=== PATIENT | female | born 1950 | race Hispanic/Latino ===

== ENCOUNTER 2017-06-01 19:58 | Inpatient (IN) | payer BC ==
[2017-06-01] MEDS ORDERED: ATROVENT IH ONE (21:33)
[2017-06-01] MEDS ORDERED: MAGNESIUM SULFATE 2GM/50ML 2 GM/50 ML BAG IV ONE (21:33)
[2017-06-01] MEDS ORDERED: PROVENTIL IH ONE (21:33)
[2017-06-01] MEDS ORDERED: ZITHROMAX 500 MG in NACL 0.9% 250ML 250 ML IV ONE (22:00)
[2017-06-01 22:04] LABS: Basophils % (Auto) 0.8 % (0.0-1.8); Hematocrit 40.7 % (30.3-42.9); Hemoglobin 13.1 gm/dl (10.1-14.3); Mean Corpuscular HGB Conc 32 % (30-34); Mean Corpuscular Hemoglobin 27 pg (28-32); Mean Corpuscular Volume 84 fl (79-97); Platelet Count 223 K/mm3 (140-440); Red Blood Count 4.87 M/mm3 (3.65-5.03); Red Cell Distribution Width 15.6 % (13.2-15.2); White Blood Count 9.9 K/mm3 (4.5-11.0)
[2017-06-01 22:19] LABS: Anion Gap 17 mmol/L; BUN/Creatinine Ratio 16; Blood Urea Nitrogen 11 mg/dL (7-17); Calcium 8.7 mg/dL (8.4-10.2); Carbon Dioxide 31 mmol/L (22-30); Chloride 94.9 mmol/L (98-107); Glucose 110 mg/dL (65-100); Sodium 139 mmol/L (137-145)
[2017-06-01] MEDS ORDERED: NACL 0.9% 250ML 250 ML ONE (22:34)
[2017-06-01] MEDS ORDERED: TESSALON PERLES PO ONE (23:33)
--- NOTE | 2017-06-02 00:07 | Emergency Department Report ---
ED Shortness of Breath HPI - General Chief Complaint: Dyspnea/Respdistress Stated Complaint: LAUREN Time Seen by Provider: 06/01/17 21:28 Source: patient, family Mode of arrival: Wheelchair Limitations: No Limitations - History of Present Illness Initial Comments: 66-year-old female [facility] [employer] [facility] [employer] employee presents to the hospital with complaints of shortness of breath and nonproductive cough times one week. Patient had intermittent episodes of wheezing better gradually worsening. Positive subjective fever reported. Patient denies home oxygen use, smoking history, chest pain, or recent travel. Patient did receive her flu shot. Her partner also has URI symptoms but started after hers. Patient is at [facility] on Wednesday for shortness of breath. Patient room and sat 95% in the ED. No pain reported. - Related Data Allergies Allergy/AdvReac Type Severity Reaction Status Date / Time No Known Allergies Allergy Unverified 06/01/17 20:20 ED Review of Systems ROS: Stated complaint: LAUREN Other details as noted in HPI Comment: All other systems reviewed and negative Other: Constitutional: No fevers chills or weight loss Eyes: No eye pain visual changes or discharge ENT: No ear pain or throat pain Neck: Denies pain Respiratory: as per hpi Cardiovascular: Denies chest pain, palpitations, syncope GI: Denies abdominal pain, nausea, vomiting, diarrhea : Denies dysuria Musculoskeletal: Denies back pain, joint swelling Skin: Denies rash, lesions, erythema Neurologic: Denies headache, numbness, weakness Psychiatric: Denies suicidal ideation, hallucinations ED Past Medical Hx - Past Medical History Previous Medical History?: Yes Hx Hypertension: Yes Hx Asthma: Yes Additional medical history: hypothyroidism - Surgical History Past Surgical History?: No - Social History Smoking Status: Former Smoker Substance Use Type: None ED Physical Exam - General Limitations: No Limitations - Other Other exam information: General: No limitations, patient is alert in no acute distress Head exam: Atraumatic, normocephalic Eyes exam: Normal appearance ENT: Moist mucous membrane, normal oropharynx Neck exam: Normal inspection, full range of motion, no meningismus nontender Respiratory exam: Diminished breath sounds bilaterally with expiratory wheezing , frequent coughing with deep inspiration Cardiovascular: Normal rate and rhythm, normal heart sounds Abdomen: Soft, nondistended, and nontender, with normal bowel sounds, no rebound, or guarding Extremity: Full range of motion normal inspection no deformity, no calf tenderness or edema Back: Normal Inspection, full range of motion, no tenderness Neurologic: Alert, oriented x3, cranial nerves intact, no motor or sensory deficit Psychiatric: normal affect, normal mood Skin: Warm, dry, intact ED Course Vital Signs 06/01/17 06/01/17 06/01/17 20:21 21:47 22:18 Temperature 98.9 F Pulse Rate 88 Pulse Rate [ 77 85 Anterior Bilateral Throughout] Respiratory 20 Rate Respiratory 18 20 Rate [Anterior Bilateral Throughout] Blood Pressure 156/56 O2 Sat by Pulse 95 Oximetry - Reevaluation(s) Reevaluation #1: 06/02/17 00:05 While receiving albuterol 10 and and Atrovent 1 mg patient began feeling lightheaded like she was going to pass out. Vital signs were stable without signs of tachycardia, bradycardia, hypotension, or hypoxia. Patient is placed supine and EKG was performed. Patient reports improvement in symptoms. Patient initially declined additional meds but it was agreeable to receiving it spread out over time. Initially patient refused Solumedrol but then was agreeable to receiving the medication along with magnesium. At this time patient reports that her chest feels less tight and she feels like she is improving although has persistent wheezing. Logan castañeda for cough ED Medical Decision Making - Lab Data Result diagrams: 06/01/17 21:41 06/01/17 21:41 Lab Results 06/01/17 06/01/17 Range/Units 21:41 21:41 WBC 9.9 (4.5-11.0) K/mm3 RBC 4.87 (3.65-5.03) M/mm3 Hgb 13.1 (10.1-14.3) gm/dl Hct 40.7 (30.3-42.9) % MCV 84 (79-97) fl MCH 27 L (28-32) pg MCHC 32 (30-34) % RDW 15.6 H (13.2-15.2) % Plt Count 223 (140-440) K/mm3 Lymph % (Auto) 14.7 (13.4-35.0) % [place] % (Auto) 6.9 (0.0-7.3) % Eos % (Auto) 1.0 (0.0-4.3) % Baso % (Auto) 0.8 (0.0-1.8) % Lymph # 1.5 (1.2-5.4) K/mm3 [place] # 0.7 (0.0-0.8) K/mm3 Eos # 0.1 (0.0-0.4) K/mm3 Baso # 0.1 (0.0-0.1) K/mm3 Seg Neutrophils % 76.6 H (40.0-70.0) % Seg Neutrophils # 7.6 (1.8-7.7) K/mm3 Sodium 139 (137-145) mmol/L Potassium 4.0 (3.6-5.0) mmol/L Chloride 94.9 L (98-107) mmol/L Carbon Dioxide 31 H (22-30) mmol/L Anion Gap 17 mmol/L BUN 11 (7-17) mg/dL Creatinine 0.7 (0.7-1.2) mg/dL Estimated GFR > 60 ml/min BUN/Creatinine Ratio 16 % Glucose 110 H (65-100) mg/dL Calcium 8.7 (8.4-10.2) mg/dL - EKG Data -: EKG Interpreted by La EKG shows normal: sinus rhythm, axis (38), QRS complexes (100), ST-T waves ( mild lat st depress) Rate: normal (82) - Radiology Data Radiology results: report reviewed (cxr: naf) - Medical Decision Making Patient be admitted to the hospital for acute bronchitis. Covered with azithromycin for atypical pneumonia. Symptoms gradually improving with ED treatment. Plan to admit for further treatment and evaluation - Differential Diagnosis asthma, COPD, bronchitis, pneumonia, CHF, unstable angina/WI Critical Care Time: No Critical care attestation.: If time is entered above; I have spent that time in minutes in the direct care of this critically ill patient, excluding procedure time. ED Disposition Clinical Impression: Acute bronchitis Disposition: OP ADMIT IP TO THIS HOSP Is pt being admited?: Yes Condition: Stable Time of Disposition: 00:02 (Dr Platt/hosp)
[2017-06-02] MEDS ORDERED: ZOFRAN IV PRN (01:30)
[2017-06-02] MEDS ORDERED: MILK OF MAGNESIA PO PRN (01:30)
[2017-06-02] MEDS ORDERED: DULCOLAX PR PRN (01:30)
[2017-06-02] MEDS ORDERED: TYLENOL PO PRN (01:30)
--- NOTE | 2017-06-02 01:30 | History and Physical Report ---
History of Present Illness Date of examination: 06/02/17 History of present illness: 66 year old woman with history of asthma, hypertension, hypothyroidism comes to the emergency room with complaints of shortness of breath x 9 days. She was seen at [place] emergency room and was treated with nebulizer treatments and discharged. Her symtoms worsened. Has a dry cough, no fever, chills Review Of Systems: Constitutional: no weight loss Ears, eyes, nose, mouth and throat: no nasal congestion, no nasal discharge, no sinus pressure, blurry vision, diplopia Neck: No neck pain or rigidity. Cardiovascular:no chest pain, orthopnea, palpitations Respiratory: + shortness of breath Gastrointestinal: no abdominal pain, hematochezia Genitourinary : no dysuria, frequency , hematuria Musculoskeletal: no muscle ache Integumentary: no rash, no pruritis Neurological: no parathesias, focal weakness Endocrine: no cold or heat intolerance, no polyuria or polydipsia Hematologic/Lymphatic: no easy bruising, no easy bleeding, no gland swelling Allergic/Immunologic: no urticaria, no angioedema. PAST MEDICAL HISTORY:hypertension PAST SURGICAL HISTORY: Left nephrectomy, hemorrhoidectomy, left knee FAMILY HISTORY: Hypertension SOCIAL HISTORY: Drinks 6 beers a day, no tobacco, drugs Medications and Allergies Allergies Allergy/AdvReac Type Severity Reaction Status Date / Time No Known Allergies Allergy Unverified 06/01/17 20:20 Home Medications Medication Instructions Recorded Confirmed Last Taken Type Azithromycin [Zithromax TAB] 500 mg PO QDAY #5 tablet 06/06/17 Unknown Rx Budesonide [Pulmicort Respules] 0.5 mg IH Q12HRT #60 nebu 06/06/17 Unknown Rx Budesonide/Formoterol Fumarate 10.2 gm IH Q12H #2 hfa.aer.ad 06/06/17 Unknown Rx [Symbicort 160-4.5 Mcg Inhaler] HYDROcodone/HOMATROP 5-1.5 5 ml PO Q6H PRN #100 udc 06/06/17 Unknown Rx [HYDROcodone-Homatropin 5-1.5 mg per 5 ML] Ipratropium/Albuterol Sulfate 1 ampul IH Q6HRT #100 ampul.neb 06/06/17 Unknown Rx [DUONEB *Not for PRN Use*] Levothyroxine Sodium [Synthroid] 75 mcg PO QDAY #30 tablet 06/06/17 Unknown Rx Lisinopril/Hydrochlorothiazide 1 tab PO QDAY #30 tablet 06/06/17 Unknown Rx [Zestoretic 20-12.5 mg] Nebulizer and Compressor [[place] 1 each MC QID #1 each 06/06/17 Unknown Rx Choice Nebulizer] ProAir HFA Inhaler 2 puff IH Q4-6H PRN #2 06/06/17 Unknown Rx predniSONE [Deltasone] 20 mg PO QDAY #90 tablet 06/06/17 Unknown Rx Exam - Physical Exam Narrative exam: Gen. appearance: Patient lying in bed, no apparent distress HEENT: Normocephalic, atraumatic, pupils equally round and reactive to light, extraocular movement intact, and no sclericterus,. No JVD or thyromegaly or nodule,neck supple, no carotid bruit ,mucous membranes moist, no exudate or erythema Heart: S1, S2, regular rate and rhythm Lungs: wheezing bilaterally, breathing comfortable Abdomen: Positive bowel sounds, nontender, nondistended, no organomegaly Extremity: no edema, cyanosis, clubbing Skin: No rash, nodules, warm, dry Neuro: Oriented 3, cranial nerves II-12 intact, speech is fluent, motor and sensory intact - Constitutional Vitals: Temp Pulse Resp BP Pulse Ox 98.9 F 85 20 156/56 95 06/01/17 20:21 06/01/17 22:18 06/01/17 22:18 06/01/17 20:21 06/01/17 20:21 Results - Labs CBC & Chem 7: 06/03/17 07:53 06/03/17 07:53 Labs: Abnormal lab results 06/01/17 06/01/17 Range/Units 21:41 21:41 MCH 27 L (28-32) pg RDW 15.6 H (13.2-15.2) % Seg Neutrophils % 76.6 H (40.0-70.0) % Chloride 94.9 L (98-107) mmol/L Carbon Dioxide 31 H (22-30) mmol/L Glucose 110 H (65-100) mg/dL - Imaging and Cardiology EKG: image reviewed Chest x-ray: image reviewed Assessment and Plan ASsessment Asthma ecaerbation hypertension hypothroidism [facility], nebulizer treatments continue appropiate outpatient medications dvt prophalaxis
[2017-06-02] MEDS ORDERED: APRESOLINE IV PRN (01:33)
[2017-06-02] MEDS: DUONEB *Not for PRN Use IH SCH ×4 (02:41→20:40)
[2017-06-02] MEDS ORDERED: NACL 0.9% 250ML 250 ML IV ONE (03:09)
--- NOTE | 2017-06-02 07:28 | XRay Report ---
AP CHEST: HISTORY: Short of breath, cough AP view of the chest demonstrates a normal mediastinal and cardiac contour with clear lungs and normal bony and soft tissue structures. IMPRESSION: Unremarkable AP chest.
[2017-06-02] MEDS: LOVENOX SUB-Q SCH (10:20)
[2017-06-02] MEDS ORDERED: HYDROMET PO PRN (12:16)
[2017-06-02] MEDS: ZITHROMAX PO SCH (13:46)
[2017-06-02] MEDS: HYDROMET PO PRN ×2 (13:46→22:30)
--- NOTE | 2017-06-02 14:27 | Event Note ---
Date: 06/02/17 Patient seen and examined continues with mild shortness of breath. Will add prn nebs, taper steroids, obtain pulmonary input. peak flow. Plan discussed with patient. Weightloss recommended.
[2017-06-03] MEDS: DUONEB *Not for PRN Use IH SCH ×4 (03:01→20:54)
[2017-06-03] MEDS: SYNTHROID PO SCH (06:35)
[2017-06-03 08:17] LABS: Hematocrit 39.8 % (30.3-42.9); Mean Corpuscular HGB Conc 33 % (30-34); Mean Corpuscular Hemoglobin 27 pg (28-32); Mean Corpuscular Volume 84 fl (79-97); Platelet Count 236 K/mm3 (140-440); Red Blood Count 4.75 M/mm3 (3.65-5.03); Red Cell Distribution Width 15.8 % (13.2-15.2)
[2017-06-03 08:30] LABS: White Blood Count 20.2 K/mm3 (4.5-11.0)
[2017-06-03 08:41] LABS: Anion Gap 17 mmol/L; BUN/Creatinine Ratio 28; Blood Urea Nitrogen 17 mg/dL (7-17); Calcium 8.8 mg/dL (8.4-10.2); Carbon Dioxide 30 mmol/L (22-30); Chloride 96.2 mmol/L (98-107); Glucose 193 mg/dL (65-100); Potassium 3.6 mmol/L (3.6-5.0); Sodium 140 mmol/L (137-145)
[2017-06-03 10:11] LABS: Basophils % (Manual) 0 % (0.0-1.8); Blastocytes % (Manual) 0 %; Eosinophils % (Manual) 0 % (0.0-4.3)
[2017-06-03 10:12] LABS: Diff Status Complete; RBC Morphology Normal
[2017-06-03] MEDS: ZESTRIL PO SCH (10:29)
[2017-06-03] MEDS: ZITHROMAX PO SCH (10:29)
[2017-06-03] MEDS: LOVENOX SUB-Q SCH (10:32)
[2017-06-03] MEDS: HCTZ PO SCH (10:32)
[2017-06-03] MEDS: HYDROMET PO PRN (10:33)
[2017-06-03] MEDS ORDERED: D50W (25GM) Syringe IV PRN (11:03)
--- NOTE | 2017-06-03 11:07 | Progress Note ---
Assessment and Plan Assessment and plan: 66 year old woman with history of asthma, hypertension, hypothyroidism comes to the emergency room with complaints of shortness of breath x 9 days. She was seen at [place] emergency room and was treated with nebulizer treatments and discharged. Her symtoms worsened. Has a dry cough, no fever, chills and no recent sick contact or so. Disposition when symptoms had already started. Acute respiratory failure Asthma exacerbation Morbid obesity Probable obesity hypoventilation syndrome Hypothyroidism Metabolic syndrome Hyperglycemia Hypertension Plan * Continue supportive care, pulmonary consult, Peak flow meters * Continue Synthroid * Extensive counselling on weight loss provided patient verbalized understanding 15 minutes spent counseling * Continue steroids, taper, continue nebs. Discussed with plumonary, Inhaled corticosteroids added in addition to LABA * Start on low sliding scale insulin coverage due to Hyperglycemia induced by steroids * DVT/GI prophy * May benefit from CHRIS studies outpatient * Plan discussed with patient. History Interval history: Patient seen and examined, reports some improvement but not at baseline yet. Patient still with shortness of breath on exertion but no associated chest pain , fever, nausea or vomiting. Hospitalist Physical - Constitutional Vitals: Temp Pulse Resp BP Pulse Ox 98.4 F 72 18 140/80 96 06/03/17 07:42 06/03/17 10:29 06/03/17 07:49 06/03/17 10:29 06/03/17 07:59 General appearance: Present: mild distress, obese (morbid) - EENT Eyes: Present: EOM intact ENT: hearing intact, clear oral mucosa, dentition normal - Neck Neck: Present: supple, normal ROM - Respiratory Respiratory effort: normal Respiratory: bilateral: wheezing (expiratory more than inspiratory) - Cardiovascular Rhythm: regular Heart Sounds: Present: S1 & S2. Absent: systolic murmur, diastolic murmur - Extremities Extremities: no ischemia, pulses intact, pulses symmetrical Peripheral Pulses: within normal limits - Abdominal General gastrointestinal: soft, non-tender, non-distended, normal bowel sounds - Integumentary Integumentary: Present: clear, warm, dry - Psychiatric Psychiatric: appropriate mood/affect, intact judgment & insight, memory intact, cooperative - Neurologic Neurologic: CNII-XII intact, moves all extremities, gait normal Results - Labs CBC & Chem 7: 06/03/17 07:53 06/03/17 07:53 Labs: Laboratory Last Values WBC 20.2 K/mm3 (4.5-11.0) H 06/03/17 07:53 RBC 4.75 M/mm3 (3.65-5.03) 06/03/17 07:53 Hgb 13.0 gm/dl (10.1-14.3) 06/03/17 07:53 Hct 39.8 % (30.3-42.9) 06/03/17 07:53 MCV 84 fl (79-97) 06/03/17 07:53 MCH 27 pg (28-32) L 12 07:53 MCHC 33 % (30-34) 06/03/17 07:53 RDW 15.8 % (13.2-15.2) H 06/03/17 07:53 Plt Count 236 K/mm3 (140-440) 06/03/17 07:53 Lymph % (Auto) 14.7 % (13.4-35.0) 06/01/17 21:41 [place] % (Auto) 6.9 % (0.0-7.3) 06/01/17 21:41 Eos % (Auto) 1.0 % (0.0-4.3) 06/01/17 21:41 Baso % (Auto) 0.8 % (0.0-1.8) 06/01/17 21:41 Lymph # 1.5 K/mm3 (1.2-5.4) 06/01/17 21:41 [place] # 0.7 K/mm3 (0.0-0.8) 06/01/17 21:41 Eos # 0.1 K/mm3 (0.0-0.4) 06/01/17 21:41 Baso # 0.1 K/mm3 (0.0-0.1) 06/01/17 21:41 Add Manual Diff Complete 06/03/17 07:53 Total Counted 100 06/03/17 07:53 Seg Neutrophils % Compliance Auditor 06/03/17 07:53 Seg Neuts % (Manual) 84.0 % (40.0-70.0) H 06/03/17 07:53 Band Neutrophils % 2.0 % 06/03/17 07:53 Lymphocytes % (Manual) 8.0 % (13.4-35.0) L 06/03/17 07:53 Reactive Lymphs % (Man) 0 % 06/03/17 07:53 Monocytes % (Manual) 6.0 % (0.0-7.3) 06/03/17 07:53 Eosinophils % (Manual) 0 % (0.0-4.3) 06/03/17 07:53 Basophils % (Manual) 0 % (0.0-1.8) 06/03/17 07:53 Metamyelocytes % 0 % 06/03/17 07:53 Myelocytes % 0 % 06/03/17 07:53 Promyelocytes % 0 % 06/03/17 07:53 Blast Cells % 0 % 06/03/17 07:53 Nucleated RBC % Not Reportable 06/03/17 07:53 Seg Neutrophils # 7.6 K/mm3 (1.8-7.7) 06/01/17 21:41 Seg Neutrophils # Man 17.0 K/mm3 (1.8-7.7) H 06/03/17 07:53 Band Neutrophils # 0.4 K/mm3 06/03/17 07:53 Lymphocytes # (Manual) 1.6 K/mm3 (1.2-5.4) 06/03/17 07:53 Abs React Lymphs (Man) 0.0 K/mm3 06/03/17 07:53 Monocytes # (Manual) 1.2 K/mm3 (0.0-0.8) H 06/03/17 07:53 Eosinophils # (Manual) 0.0 K/mm3 (0.0-0.4) 06/03/17 07:53 Basophils # (Manual) 0.0 K/mm3 (0.0-0.1) 06/03/17 07:53 Metamyelocytes # 0.0 K/mm3 06/03/17 07:53 Myelocytes # 0.0 K/mm3 06/03/17 07:53 Promyelocytes # 0.0 K/mm3 06/03/17 07:53 Blast Cells # 0.0 K/mm3 06/03/17 07:53 WBC Morphology Not Reportable 06/03/17 07:53 Hypersegmented Neuts Not Reportable 06/03/17 07:53 Hyposegmented Neuts Not Reportable 06/03/17 07:53 Hypogranular Neuts Not Reportable 06/03/17 07:53 Smudge Cells Not Reportable 06/03/17 07:53 Toxic Granulation Not Reportable 06/03/17 07:53 Toxic Vacuolation Not Reportable 06/03/17 07:53 Dohle Bodies Not Reportable 06/03/17 07:53 Pelger-Huet Anomaly Not Reportable 06/03/17 07:53 Jatinder Rods Not Reportable 06/03/17 07:53 Platelet Estimate Not Reportable 06/03/17 07:53 Clumped Platelets Not Reportable 06/03/17 07:53 Plt Clumps, EDTA Not Reportable 06/03/17 07:53 Large Platelets Not Reportable 06/03/17 07:53 Giant Platelets Not Reportable 06/03/17 07:53 Platelet Satelliting Not Reportable 06/03/17 07:53 Plt Morphology Comment Not Reportable 06/03/17 07:53 RBC Morphology Normal 06/03/17 07:53 Dimorphic RBCs Not Reportable 06/03/17 07:53 Polychromasia Not Reportable 06/03/17 07:53 Hypochromasia Not Reportable 06/03/17 07:53 Poikilocytosis Not Reportable 06/03/17 07:53 Anisocytosis Not Reportable 06/03/17 07:53 Microcytosis Not Reportable 06/03/17 07:53 Macrocytosis Not Reportable 06/03/17 07:53 Spherocytes Not Reportable 06/03/17 07:53 Pappenheimer Bodies Not Reportable 06/03/17 07:53 Sickle Cells Not Reportable 06/03/17 07:53 Target Cells Not Reportable 06/03/17 07:53 Tear Drop Cells Not Reportable 06/03/17 07:53 Ovalocytes Not Reportable 06/03/17 07:53 Helmet Cells Not Reportable 06/03/17 07:53 [place] Bodies Not Reportable 06/03/17 07:53 [place] Rings Not Reportable 06/03/17 07:53 Krissy Cells Not Reportable 06/03/17 07:53 Bite Cells Not Reportable 06/03/17 07:53 Crenated Cell Not Reportable 06/03/17 07:53 Elliptocytes Not Reportable 06/03/17 07:53 Acanthocytes (Spur) Not Reportable 06/03/17 07:53 Rouleaux Not Reportable 06/03/17 07:53 Hemoglobin C Crystals Not Reportable 06/03/17 07:53 Schistocytes Not Reportable 06/03/17 07:53 Malaria parasites Not Reportable 06/03/17 07:53 [place]ito Bodies Not Reportable 06/03/17 07:53 Hem Pathologist Commnt No 06/03/17 07:53 Sodium 140 mmol/L (137-145) 06/03/17 07:53 Potassium 3.6 mmol/L (3.6-5.0) 06/03/17 07:53 Chloride 96.2 mmol/L (98-107) L 06/03/17 07:53 Carbon Dioxide 30 mmol/L (22-30) 06/03/17 07:53 Anion Gap 17 mmol/L 06/03/17 07:53 BUN 17 mg/dL (7-17) 06/03/17 07:53 Creatinine 0.6 mg/dL (0.7-1.2) L 06/03/17 07:53 Estimated GFR > 60 ml/min 06/03/17 07:53 BUN/Creatinine Ratio 28 % 06/03/17 07:53 Glucose 193 mg/dL (65-100) H 06/03/17 07:53 Calcium 8.8 mg/dL (8.4-10.2) 06/03/17 07:53 Troponin T < 0.010 ng/mL (0.00-0.029) 06/02/17 00:07
--- NOTE | 2017-06-03 11:49 | Consultation ---
History of Present Illness Consult date: 06/03/17 Requesting physician: DIOGENES ARELLANO Reason for consult: asthma History of present illness: 66 y/o, obese female, admitted with several days of worsening shortness of breath and cough. Noticed that she started feeling this way after putting up a new [place] tree. Has known asthma that has been under great control for the last 10 years. Has not taken any therapy in the last 10 years. No sick contacts. Did have low grade temps at home. Remainder is negative. Past History Past Medical History: hypertension, hypothyroidism, other (asthma, obesity) Past Surgical History: No surgical history Social history: (Never a smoker) Family history: no significant family history Medications and Allergies Allergies Allergy/AdvReac Type Severity Reaction Status Date / Time No Known Allergies Allergy Unverified 06/01/17 20:20 Home Medications Medication Instructions Recorded Confirmed Last Taken Type Levothyroxine Sodium [Synthroid] 75 mcg PO QDAY 06/02/17 06/02/17 05/31/17 History Lisinopril/Hydrochlorothiazide 1 tab PO QDAY 06/02/17 06/02/17 05/31/17 History [Zestoretic 20-12.5 mg] ProAir HFA Inhaler 2 puff IH Q4-6H PRN 06/02/17 06/02/17 Unknown History Active Meds: Active Medications Acetaminophen (Tylenol) 650 mg PO Q4H PRN PRN Reason: Pain MILD(1-3)/Fever >100.5/MAYNARD Albuterol (Proventil) 2.5 mg IH Q4HRT PRN PRN Reason: Shortness Of Breath Albuterol/Ipratropium (Duoneb *Not For Prn Use*) 1 ampul IH Q6HRT [facility] Last Admin: 06/03/17 07:21 Dose: 1 ampul Arformoterol Tartrate (Brovana Nebu) 15 mcg IH Q12HRT [facility] Azithromycin (Zithromax) 500 mg PO QDAY [facility] Last Admin: 06/03/17 10:29 Dose: 500 mg Bisacodyl (Dulcolax) 10 mg [place] QDAY PRN PRN Reason: Constipation unrelieved by MOM Budesonide (Pulmicort) 0.5 mg IH Q12HRT [facility] Dextrose (D50w (25gm) Syringe) 50 ml IV PRN PRN PRN Reason: Hypoglycemia Enoxaparin Sodium (Lovenox) 40 mg SUB-Q QDAY [facility] Last Admin: 06/03/17 10:32 Dose: 40 mg Hydralazine HCl (Apresoline) 5 mg IV Q6H PRN PRN Reason: Hypertension Hydrochlorothiazide (Hctz) 12.5 mg PO QDAY [facility] Last Admin: 06/03/17 10:32 Dose: 12.5 mg Hydrocodone Bit/Homatropine Methylb (Hydromet) 5 ml PO Q6H PRN PRN Reason: Cough Last Admin: 06/03/17 10:33 Dose: 5 ml Insulin Aspart (Novolog) 0 units SUB-Q AC [facility] PRN Reason: Protocol Levothyroxine Sodium (Synthroid) 75 mcg PO DAILY@0600 [facility] Last Admin: 06/03/17 06:35 Dose: 75 mcg Lisinopril (Zestril) 20 mg PO QDAY [facility] Last Admin: 06/03/17 10:29 Dose: 20 mg Magnesium Hydroxide (Milk Of Magnesia) 30 ml PO Q4H PRN PRN Reason: Constipation Methylprednisolone Sodium Succinate (Solu-Medrol) 60 mg IV Q6HR GRICELDA Ondansetron HCl (Zofran) 4 mg IV Q8H PRN PRN Reason: N/V unrelieved by Regregan Review of Systems All systems: negative Physical Examination Vital signs: Vital Signs Pulse Resp Pulse Ox 92 H 20 95 06/01/17 20:04 06/01/17 20:04 06/01/17 20:04 General appearance: no acute distress, alert, other (morbidly obese) Eyes: non-icteric ENT: oropharynx moist Neck: supple Effort: normal Ascultation: Bilateral: diminished breath sounds (no wheezes) Percussion: Bilateral: not dull Tactile fremitus: Bilateral: normal Cardiovascular: regular rate and rhythm Gastrointestinal: normoactive bowel sounds, soft, non-tender Extremities: no edema, pink and warm, pulses normal Gait: normal gait normal mental status, non-focal exam mood appropriate Results - Laboratory Findings CBC and BMP: 06/03/17 07:53 06/03/17 07:53 Abnormal lab findings: Abnormal Labs 06/01/17 06/01/17 06/03/17 21:41 21:41 07:53 WBC 20.2 H MCH 27 L 27 L RDW 15.6 H 15.8 H Seg Neutrophils % 76.6 H Seg Neuts % (Manual) 84.0 H Lymphocytes % (Manual) 8.0 L Seg Neutrophils # Man 17.0 H Monocytes # (Manual) 1.2 H Chloride 94.9 L Carbon Dioxide 31 H Creatinine Glucose 110 H 06/03/17 07:53 WBC MCH RDW Seg Neutrophils % Seg Neuts % (Manual) Lymphocytes % (Manual) Seg Neutrophils # Man Monocytes # (Manual) Chloride 96.2 L Carbon Dioxide Creatinine 0.6 L Glucose 193 H - Diagnostic Findings Chest x-ray: image reviewed (clear, no evidence of acute lung disease) Assessment and Plan 66 y/o female with acute flare of asthma secondary to particulate matter 1. Change steroids to 60q6 2. Added BID pulmicort and brovana with first doses now 3. Wean FiO2 as tolerated 4. Continue all other home medications 5. Hopeful discharge in the next 48 hours. Thank you for this consult.
[2017-06-03] MEDS: BROVANA NEBU IH SCH ×2 (13:04→20:51)
[2017-06-03] MEDS: PULMICORT IH SCH ×2 (13:04→20:49)
[2017-06-03] MEDS: NOVOLOG SUB-Q SCH ×2 (15:38→18:02)
[2017-06-03] MEDS: PROVENTIL IH PRN ×2 (20:50→20:52)
[2017-06-03] MEDS ORDERED: ZITHROMAX 500 MG in NACL 0.9% 250ML 250 ML IV ONE (23:00)
[2017-06-04] MEDS: HYDROMET PO PRN (00:28)
[2017-06-04] MEDS: DUONEB *Not for PRN Use IH SCH ×4 (01:57→20:20)
[2017-06-04] MEDS: SYNTHROID PO SCH (07:00)
[2017-06-04] MEDS: PULMICORT IH SCH ×2 (08:06→20:19)
[2017-06-04] MEDS: BROVANA NEBU IH SCH ×2 (08:06→20:19)
[2017-06-04] MEDS: ZITHROMAX PO SCH (10:32)
[2017-06-04] MEDS: ZESTRIL PO SCH (10:32)
[2017-06-04] MEDS: LOVENOX SUB-Q SCH (10:34)
--- NOTE | 2017-06-04 12:08 | Progress Note ---
Assessment and Plan 66 y/o female with acute flare of asthma secondary to particulate matter 1. Continue at 60q6, solumedrol 2. Continue BID pulmicort and brovana 3. Wean FiO2 as tolerated 4. Continue all other home medications 5. Hopeful discharge in the next 24 hours. Thank you for this consult. Subjective Date of service: 06/04/17 Interval history: No acute events. Feels much better today but still not ready to go home. O2 requirment has decreased. Objective Vital Signs - 12hr 06/04/17 06/04/17 06/04/17 02:00 02:11 08:06 Temperature Pulse Rate Pulse Rate [ 86 88 79 Anterior Bilateral Throughout] Respiratory Rate Respiratory 22 20 20 Rate [Anterior Bilateral Throughout] Blood Pressure O2 Sat by Pulse 98 Oximetry 06/04/17 06/04/17 06/04/17 08:09 08:16 10:32 Temperature 97.7 F Pulse Rate 80 501 H Pulse Rate [ 71 Anterior Bilateral Throughout] Respiratory 18 Rate Respiratory 20 Rate [Anterior Bilateral Throughout] Blood Pressure 131/61 O2 Sat by Pulse 96 Oximetry Constitutional: no acute distress, alert, other (morbidly obese) Eyes: non-icteric ENT: oropharynx moist Neck: supple Effort: normal Ascultation: Bilateral: diminished breath sounds (no wheezes) Percussion: Bilateral: not dull Tactile fremitus: Bilateral: normal Cardiovascular: regular rate and rhythm Gastrointestinal: normoactive bowel sounds, soft, non-tender Extremities: no edema, pink and warm, pulses normal Neurologic: normal mental status, non-focal exam Psychiatric: mood appropriate CBC and BMP: 06/03/17 07:53 06/03/17 07:53 Abnormal lab findings: Abnormal Labs 06/01/17 06/01/17 06/03/17 21:41 21:41 07:53 WBC 20.2 H MCH 27 L 27 L RDW 15.6 H 15.8 H Seg Neutrophils % 76.6 H Seg Neuts % (Manual) 84.0 H Lymphocytes % (Manual) 8.0 L Seg Neutrophils # Man 17.0 H Monocytes # (Manual) 1.2 H Chloride 94.9 L Carbon Dioxide 31 H Creatinine Glucose 110 H POC Glucose 06/03/17 06/03/17 06/03/17 07:53 15:53 22:15 WBC MCH RDW Seg Neutrophils % Seg Neuts % (Manual) Lymphocytes % (Manual) Seg Neutrophils # Man Monocytes # (Manual) Chloride 96.2 L Carbon Dioxide Creatinine 0.6 L Glucose 193 H POC Glucose 206 H 199 H 06/04/17 06:14 WBC MCH RDW Seg Neutrophils % Seg Neuts % (Manual) Lymphocytes % (Manual) Seg Neutrophils # Man Monocytes # (Manual) Chloride Carbon Dioxide Creatinine Glucose POC Glucose 162 H
[2017-06-04] MEDS: NOVOLOG SUB-Q SCH ×3 (13:24→21:04)
--- NOTE | 2017-06-04 15:16 | Progress Note ---
Assessment and Plan Assessment and plan: 66 year old woman with history of asthma, hypertension, hypothyroidism comes to the emergency room with complaints of shortness of breath x 9 days. She was seen at [place] emergency room and was treated with nebulizer treatments and discharged. Her symptoms worsened. Has a dry cough, no fever, chills and no recent sick contact or so. Disposition when symptoms had already started. Acute respiratory failure Asthma exacerbation Morbid obesity Probable obesity hypoventilation syndrome Hypothyroidism Metabolic syndrome Hyperglycemia Hypertension Plan * Continue supportive care, pulmonary consult noted, Peak flow meters * Continue Synthroid down to 60 q6. anticipate discharge in am * Extensive counselling on weight loss provided patient verbalized understanding 15 minutes spent counseling * Continue steroids, taper, continue nebs. Discussed with plumonary, Inhaled corticosteroids added in addition to LABA * CONTINUE on low sliding scale insulin coverage due to Hyperglycemia induced by steroids * DVT/GI prophy * May benefit from CHRIS studies outpatient * Plan discussed with patient. History Interval history: Patient seen and examined, reports some improvement but not at baseline yet. Better today than yesterday. no fever, chest pain, nausea, vomiting, diarrhea Hospitalist Physical - Physical exam Narrative exam: VITAL SIGNS: Reviewed. GENERAL: The patient appeared well nourished and normally developed. morbidly obese goes away is his office as a is a this is a question I will site is Vital signs as documented. HEAD: No signs of head trauma. EYES: Pupils are equal. Extraocular motions intact. EARS: Hearing grossly intact. MOUTH: Oropharynx is normal. NECK: No adenopathy, no JVD. CHEST: Chest with wheezing breath sounds bilaterally. No rales, or rhonchi. CARDIAC: Regular rate and rhythm. S1 and S2, without murmurs, gallops, or rubs. VASCULAR: No Edema. Peripheral pulses normal and equal in all extremities. ABDOMEN: Soft, without detectable tenderness. No sign of distention. No rebound or guarding, and no masses palpated. Bowel Sounds normal. MUSCULOSKELETAL: Good range of motion of all major joints. Extremities without clubbing, cyanosis or edema. NEUROLOGIC EXAM: Alert and oriented x 3. No focal sensory or strength deficits. Speech normal. Follows commands. PSYCHIATRIC: Mood normal. SKIN: No rash or lesions. - Constitutional Vitals: Temp Pulse Resp BP Pulse Ox 97.7 F 78 20 131/61 96 06/04/17 08:09 06/04/17 14:16 06/04/17 14:16 06/04/17 08:09 06/04/17 08:09 General appearance: Present: mild distress, obese (morbid) Results - Labs CBC & Chem 7: 06/03/17 07:53 06/03/17 07:53 Labs: Laboratory Last Values WBC 20.2 K/mm3 (4.5-11.0) H 06/03/17 07:53 RBC 4.75 M/mm3 (3.65-5.03) 06/03/17 07:53 Hgb 13.0 gm/dl (10.1-14.3) 06/03/17 07:53 Hct 39.8 % (30.3-42.9) 06/03/17 07:53 MCV 84 fl (79-97) 06/03/17 07:53 MCH 27 pg (28-32) L 06/03/17 07:53 MCHC 33 % (30-34) 06/03/17 07:53 RDW 15.8 % (13.2-15.2) H 06/03/17 07:53 Plt Count 236 K/mm3 (140-440) 06/03/17 07:53 Lymph % (Auto) 14.7 % (13.4-35.0) 06/01/17 21:41 [place] % (Auto) 6.9 % (0.0-7.3) 06/01/17 21:41 Eos % (Auto) 1.0 % (0.0-4.3) 06/01/17 21:41 Baso % (Auto) 0.8 % (0.0-1.8) 06/01/17 21:41 Lymph # 1.5 K/mm3 (1.2-5.4) 06/01/17 21:41 [place] # 0.7 K/mm3 (0.0-0.8) 06/01/17 21:41 Eos # 0.1 K/mm3 (0.0-0.4) 06/01/17 21:41 Baso # 0.1 K/mm3 (0.0-0.1) 06/01/17 21:41 Add Manual Diff Complete 06/03/17 07:53 Total Counted 100 06/03/17 07:53 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 06/03/17 07:53 Seg Neuts % (Manual) 84.0 % (40.0-70.0) H 06/03/17 07:53 Band Neutrophils % 2.0 % 06/03/17 07:53 Lymphocytes % (Manual) 8.0 % (13.4-35.0) L 06/03/17 07:53 Reactive Lymphs % (Man) 0 % 06/03/17 07:53 Monocytes % (Manual) 6.0 % (0.0-7.3) 06/03/17 07:53 Eosinophils % (Manual) 0 % (0.0-4.3) 06/03/17 07:53 Basophils % (Manual) 0 % (0.0-1.8) 06/03/17 07:53 Metamyelocytes % 0 % 06/03/17 07:53 Myelocytes % 0 % 06/03/17 07:53 Promyelocytes % 0 % 06/03/17 07:53 Blast Cells % 0 % 06/03/17 07:53 Nucleated RBC % Not Reportable 06/03/17 07:53 Seg Neutrophils # 7.6 K/mm3 (1.8-7.7) 06/01/17 21:41 Seg Neutrophils # Man 17.0 K/mm3 (1.8-7.7) H 06/03/17 07:53 Band Neutrophils # 0.4 K/mm3 06/03/17 07:53 Lymphocytes # (Manual) 1.6 K/mm3 (1.2-5.4) 06/03/17 07:53 Abs React Lymphs (Man) 0.0 K/mm3 06/03/17 07:53 Monocytes # (Manual) 1.2 K/mm3 (0.0-0.8) H 06/03/17 07:53 Eosinophils # (Manual) 0.0 K/mm3 (0.0-0.4) 06/03/17 07:53 Basophils # (Manual) 0.0 K/mm3 (0.0-0.1) 06/03/17 07:53 Metamyelocytes # 0.0 K/mm3 06/03/17 07:53 Myelocytes # 0.0 K/mm3 06/03/17 07:53 Promyelocytes # 0.0 K/mm3 06/03/17 07:53 Blast Cells # 0.0 K/mm3 06/03/17 07:53 WBC Morphology Not Reportable 06/03/17 07:53 Hypersegmented Neuts Not Reportable 06/03/17 07:53 Hyposegmented Neuts Not Reportable 06/03/17 07:53 Hypogranular Neuts Not Reportable 06/03/17 07:53 Smudge Cells Not Reportable 06/03/17 07:53 Toxic Granulation Not Reportable 06/03/17 07:53 Toxic Vacuolation Not Reportable 06/03/17 07:53 Dohle Bodies Not Reportable 06/03/17 07:53 Pelger-Huet Anomaly Not Reportable 06/03/17 07:53 Jatinder Rods Not Reportable 06/03/17 07:53 Platelet Estimate Not Reportable 06/03/17 07:53 Clumped Platelets Not Reportable 06/03/17 07:53 Plt Clumps, EDTA Not Reportable 06/03/17 07:53 Large Platelets Not Reportable 06/03/17 07:53 Giant Platelets Not Reportable 06/03/17 07:53 Platelet Satelliting Not Reportable 06/03/17 07:53 Plt Morphology Comment Not Reportable 06/03/17 07:53 RBC Morphology Normal 06/03/17 07:53 Dimorphic RBCs Not Reportable 06/03/17 07:53 Polychromasia Not Reportable 06/03/17 07:53 Hypochromasia Not Reportable 06/03/17 07:53 Poikilocytosis Not Reportable 06/03/17 07:53 Anisocytosis Not Reportable 06/03/17 07:53 Microcytosis Not Reportable 06/03/17 07:53 Macrocytosis Not Reportable 06/03/17 07:53 Spherocytes Not Reportable 06/03/17 07:53 Pappenheimer Bodies Not Reportable 06/03/17 07:53 Sickle Cells Not Reportable 06/03/17 07:53 Target Cells Not Reportable 06/03/17 07:53 Tear Drop Cells Not Reportable 06/03/17 07:53 Ovalocytes Not Reportable 06/03/17 07:53 Helmet Cells Not Reportable 06/03/17 07:53 [place] Bodies Not Reportable 06/03/17 07:53 [place] Rings Not Reportable 06/03/17 07:53 [place] Cells Not Reportable 06/03/17 07:53 Bite Cells Not Reportable 06/03/17 07:53 Crenated Cell Not Reportable 06/03/17 07:53 Elliptocytes Not Reportable 06/03/17 07:53 Acanthocytes (Spur) Not Reportable 06/03/17 07:53 Rouleaux Not Reportable 06/03/17 07:53 Hemoglobin C Crystals Not Reportable 06/03/17 07:53 Schistocytes Not Reportable 06/03/17 07:53 Malaria parasites Not Reportable 06/03/17 07:53 [place] Bodies Not Reportable 06/03/17 07:53 Hem Pathologist Commnt No 06/03/17 07:53 Sodium 140 mmol/L (137-145) 06/03/17 07:53 Potassium 3.6 mmol/L (3.6-5.0) 06/03/17 07:53 Chloride 96.2 mmol/L (98-107) L 06/03/17 07:53 Carbon Dioxide 30 mmol/L (22-30) 06/03/17 07:53 Anion Gap 17 mmol/L 06/03/17 07:53 BUN 17 mg/dL (7-17) 06/03/17 07:53 Creatinine 0.6 mg/dL (0.7-1.2) L 06/03/17 07:53 Estimated GFR > 60 ml/min 06/03/17 07:53 BUN/Creatinine Ratio 28 % 06/03/17 07:53 Glucose 193 mg/dL (65-100) H 06/03/17 07:53 POC Glucose 252 (70-105) H 06/04/17 11:49 Calcium 8.8 mg/dL (8.4-10.2) 06/03/17 07:53 Troponin T < 0.010 ng/mL (0.00-0.029) 06/02/17 00:07
[2017-06-04] MEDS: HCTZ PO SCH (17:24)
[2017-06-05] MEDS: HYDROMET PO PRN (02:16)
[2017-06-05] MEDS: DUONEB *Not for PRN Use IH SCH ×4 (03:15→19:59)
[2017-06-05] MEDS: SYNTHROID PO SCH (07:22)
[2017-06-05] MEDS: BROVANA NEBU IH SCH ×2 (08:01→19:58)
[2017-06-05] MEDS: PULMICORT IH SCH ×2 (08:01→19:59)
[2017-06-05] MEDS: ZITHROMAX PO SCH (09:40)
[2017-06-05] MEDS: ZESTRIL PO SCH (09:41)
[2017-06-05] MEDS: NOVOLOG SUB-Q SCH ×3 (09:41→17:46)
[2017-06-05] MEDS: HCTZ PO SCH (09:41)
[2017-06-05] MEDS: LOVENOX SUB-Q SCH (09:41)
--- NOTE | 2017-06-05 10:22 | Progress Note ---
Assessment and Plan Assessment and plan: Assessment and Plan Assessment and plan: 66 year old woman with history of asthma, hypertension, hypothyroidism comes to the emergency room with complaints of shortness of breath x 9 days. She was seen at [place] emergency room and was treated with nebulizer treatments and discharged. Her symptoms worsened. Has a dry cough, no fever, chills and no recent sick contact or so. Disposition when symptoms had already started. Acute respiratory failure Asthma exacerbation Morbid obesity Probable obesity hypoventilation syndrome Hypothyroidism Metabolic syndrome Hyperglycemia Hypertension Plan * Continue supportive care, pulmonary consult noted, Peak flow meters * Continue Synthroid down to 60 q6. anticipate discharge in am * Extensive counselling on weight loss provided patient verbalized understanding 15 minutes spent counseling * Continue steroids, taper, continue nebs. Discussed with plumonary, Inhaled corticosteroids added in addition to LABA * CONTINUE on low sliding scale insulin coverage due to Hyperglycemia induced by steroids * DVT/GI prophy * May benefit from CHRIS studies outpatient * Plan discussed with patient. * Will discharge tomorrow on Oral prednisone if Pulmonolgy agrees History Interval history: Doing better Hospitalist Physical - Constitutional Vitals: Temp Pulse Resp BP Pulse Ox 97.8 F 65 20 164/63 92 06/05/17 08:38 06/05/17 08:38 06/05/17 08:38 06/05/17 09:41 06/05/17 08:38 General appearance: Present: no acute distress, mild distress, obese (morbid) - EENT Eyes: Present: PERRL, EOM intact - Neck Neck: Present: supple, normal ROM - Respiratory Respiratory: bilateral: CTA - Cardiovascular Heart rate: 76 Rhythm: regular - Extremities Extremities: no ischemia, pulses intact Peripheral Pulses: within normal limits - Abdominal General gastrointestinal: soft, non-tender, normal bowel sounds - Integumentary Integumentary: Present: clear, warm, dry - Psychiatric Psychiatric: appropriate mood/affect - Neurologic Neurologic: CNII-XII intact, gait normal - Allied Health Allied health notes reviewed: nursing, case management Results - Labs CBC & Chem 7: 06/03/17 07:53 06/03/17 07:53 Labs: Laboratory Last Values WBC 20.2 K/mm3 (4.5-11.0) H 06/03/17 07:53 RBC 4.75 M/mm3 (3.65-5.03) 06/03/17 07:53 Hgb 13.0 gm/dl (10.1-14.3) 06/03/17 07:53 Hct 39.8 % (30.3-42.9) 06/03/17 07:53 MCV 84 fl (79-97) 06/03/17 07:53 MCH 27 pg (28-32) L 06/03/17 07:53 MCHC 33 % (30-34) 06/03/17 07:53 RDW 15.8 % (13.2-15.2) H 06/03/17 07:53 Plt Count 236 K/mm3 (140-440) 06/03/17 07:53 Lymph % (Auto) 14.7 % (13.4-35.0) 06/01/17 21:41 [place] % (Auto) 6.9 % (0.0-7.3) 06/01/17 21:41 Eos % (Auto) 1.0 % (0.0-4.3) 06/01/17 21:41 Baso % (Auto) 0.8 % (0.0-1.8) 06/01/17 21:41 Lymph # 1.5 K/mm3 (1.2-5.4) 06/01/17 21:41 [place] # 0.7 K/mm3 (0.0-0.8) 06/01/17 21:41 Eos # 0.1 K/mm3 (0.0-0.4) 06/01/17 21:41 Baso # 0.1 K/mm3 (0.0-0.1) 06/01/17 21:41 Add Manual Diff Complete 06/03/17 07:53 Total Counted 100 06/03/17 07:53 Seg Neutrophils % Work From Home 06/03/17 07:53 Seg Neuts % (Manual) 84.0 % (40.0-70.0) H 06/03/17 07:53 Band Neutrophils % 2.0 % 06/03/17 07:53 Lymphocytes % (Manual) 8.0 % (13.4-35.0) L 06/03/17 07:53 Reactive Lymphs % (Man) 0 % 06/03/17 07:53 Monocytes % (Manual) 6.0 % (0.0-7.3) 06/03/17 07:53 Eosinophils % (Manual) 0 % (0.0-4.3) 06/03/17 07:53 Basophils % (Manual) 0 % (0.0-1.8) 06/03/17 07:53 Metamyelocytes % 0 % 06/03/17 07:53 Myelocytes % 0 % 06/03/17 07:53 Promyelocytes % 0 % 06/03/17 07:53 Blast Cells % 0 % 06/03/17 07:53 Nucleated RBC % Not Reportable 06/03/17 07:53 Seg Neutrophils # 7.6 K/mm3 (1.8-7.7) 06/01/17 21:41 Seg Neutrophils # Man 17.0 K/mm3 (1.8-7.7) H 06/03/17 07:53 Band Neutrophils # 0.4 K/mm3 06/03/17 07:53 Lymphocytes # (Manual) 1.6 K/mm3 (1.2-5.4) 06/03/17 07:53 Abs React Lymphs (Man) 0.0 K/mm3 06/03/17 07:53 Monocytes # (Manual) 1.2 K/mm3 (0.0-0.8) H 06/03/17 07:53 Eosinophils # (Manual) 0.0 K/mm3 (0.0-0.4) 06/03/17 07:53 Basophils # (Manual) 0.0 K/mm3 (0.0-0.1) 06/03/17 07:53 Metamyelocytes # 0.0 K/mm3 06/03/17 07:53 Myelocytes # 0.0 K/mm3 06/03/17 07:53 Promyelocytes # 0.0 K/mm3 06/03/17 07:53 Blast Cells # 0.0 K/mm3 06/03/17 07:53 WBC Morphology Not Reportable 06/03/17 07:53 Hypersegmented Neuts Not Reportable 06/03/17 07:53 Hyposegmented Neuts Not Reportable 06/03/17 07:53 Hypogranular Neuts Not Reportable 06/03/17 07:53 Smudge Cells Not Reportable 06/03/17 07:53 Toxic Granulation Not Reportable 06/03/17 07:53 Toxic Vacuolation Not Reportable 06/03/17 07:53 Dohle Bodies Not Reportable 06/03/17 07:53 Pelger-Huet Anomaly Not Reportable 06/03/17 07:53 Jatinder Rods Not Reportable 06/03/17 07:53 Platelet Estimate Not Reportable 06/03/17 07:53 Clumped Platelets Not Reportable 06/03/17 07:53 Plt Clumps, EDTA Not Reportable 06/03/17 07:53 Large Platelets Not Reportable 06/03/17 07:53 Giant Platelets Not Reportable 06/03/17 07:53 Platelet Satelliting Not Reportable 06/03/17 07:53 Plt Morphology Comment Not Reportable 06/03/17 07:53 RBC Morphology Normal 06/03/17 07:53 Dimorphic RBCs Not Reportable 06/03/17 07:53 Polychromasia Not Reportable 06/03/17 07:53 Hypochromasia Not Reportable 06/03/17 07:53 Poikilocytosis Not Reportable 06/03/17 07:53 Anisocytosis Not Reportable 06/03/17 07:53 Microcytosis Not Reportable 06/03/17 07:53 Macrocytosis Not Reportable 06/03/17 07:53 Spherocytes Not Reportable 06/03/17 07:53 Pappenheimer Bodies Not Reportable 06/03/17 07:53 Sickle Cells Not Reportable 06/03/17 07:53 Target Cells Not Reportable 06/03/17 07:53 Tear Drop Cells Not Reportable 06/03/17 07:53 Ovalocytes Not Reportable 06/03/17 07:53 Helmet Cells Not Reportable 06/03/17 07:53 [place] Bodies Not Reportable 06/03/17 07:53 [place] Rings Not Reportable 06/03/17 07:53 [place] Cells Not Reportable 06/03/17 07:53 Bite Cells Not Reportable 06/03/17 07:53 Crenated Cell Not Reportable 06/03/17 07:53 Elliptocytes Not Reportable 06/03/17 07:53 Acanthocytes (Spur) Not Reportable 06/03/17 07:53 Rouleaux Not Reportable 06/03/17 07:53 Hemoglobin C Crystals Not Reportable 06/03/17 07:53 Schistocytes Not Reportable 06/03/17 07:53 Malaria parasites Not Reportable 06/03/17 07:53 [place] Bodies Not Reportable 06/03/17 07:53 Hem Pathologist Commnt No 06/03/17 07:53 Sodium 140 mmol/L (137-145) 06/03/17 07:53 Potassium 3.6 mmol/L (3.6-5.0) 06/03/17 07:53 Chloride 96.2 mmol/L (98-107) L 06/03/17 07:53 Carbon Dioxide 30 mmol/L (22-30) 06/03/17 07:53 Anion Gap 17 mmol/L 06/03/17 07:53 BUN 17 mg/dL (7-17) 06/03/17 07:53 Creatinine 0.6 mg/dL (0.7-1.2) L 06/03/17 07:53 Estimated GFR > 60 ml/min 06/03/17 07:53 BUN/Creatinine Ratio 28 % 06/03/17 07:53 Glucose 193 mg/dL (65-100) H 06/03/17 07:53 POC Glucose 167 (70-105) H 06/05/17 06:17 Calcium 8.8 mg/dL (8.4-10.2) 06/03/17 07:53 Troponin T < 0.010 ng/mL (0.00-0.029) 06/02/17 00:07
--- NOTE | 2017-06-05 16:15 | Progress Note ---
Assessment and Plan 66 y/o female with acute flare of asthma secondary to particulate matter 1. Change to Prednisone 60 daily and taper as follows 60x4, 40x4, 20x4 and then 10x4 then stop. 2. Discharge on Symbicort 160 2 puffs BID, one inhaler, no refills 3. Wean FiO2 as tolerated, no on oxygen at home, sats of 88% and greater are acceptable. Should be walked prior to discharge 4. Continue all other home medications 5. Hopeful discharge in the next 2-18 hours. 6. Do not need to see patient unless clinical status has changed. She can follow up with Caroline in 10-14 days. Thank you for this consult. Subjective Date of service: 06/05/17 Interval history: Asleep, no family at bedside. Still on O2 with good sats. Appears comfortable. Objective Vital Signs - 12hr 06/05/17 06/05/17 06/05/17 04:50 08:01 08:11 Temperature 97.5 F L Pulse Rate 67 Pulse Rate [ 67 70 Anterior Bilateral Throughout] Respiratory 18 Rate Respiratory 18 20 Rate [Anterior Bilateral Throughout] Blood Pressure 115/51 O2 Sat by Pulse 94 97 Oximetry 06/05/17 06/05/17 08:38 09:41 Temperature 97.8 F Pulse Rate 65 Pulse Rate [ Anterior Bilateral Throughout] Respiratory 20 Rate Respiratory Rate [Anterior Bilateral Throughout] Blood Pressure 164/63 164/63 O2 Sat by Pulse 92 Oximetry Constitutional: no acute distress, alert, other (morbidly obese) Eyes: non-icteric ENT: oropharynx moist Neck: supple Effort: normal Ascultation: Bilateral: diminished breath sounds (no wheezes) Percussion: Bilateral: not dull Tactile fremitus: Bilateral: normal Cardiovascular: regular rate and rhythm Gastrointestinal: normoactive bowel sounds, soft, non-tender Extremities: no edema, pink and warm, pulses normal Neurologic: normal mental status, non-focal exam Psychiatric: mood appropriate CBC and BMP: 06/03/17 07:53 06/03/17 07:53 Abnormal lab findings: Abnormal Labs 06/01/17 06/01/17 06/03/17 21:41 21:41 07:53 WBC 20.2 H MCH 27 L 27 L RDW 15.6 H 15.8 H Seg Neutrophils % 76.6 H Seg Neuts % (Manual) 84.0 H Lymphocytes % (Manual) 8.0 L Seg Neutrophils # Man 17.0 H Monocytes # (Manual) 1.2 H Chloride 94.9 L Carbon Dioxide 31 H Creatinine Glucose 110 H POC Glucose 06/03/17 06/03/17 06/03/17 07:53 15:53 22:15 WBC MCH RDW Seg Neutrophils % Seg Neuts % (Manual) Lymphocytes % (Manual) Seg Neutrophils # Man Monocytes # (Manual) Chloride 96.2 L Carbon Dioxide Creatinine 0.6 L Glucose 193 H POC Glucose 206 H 199 H 06/04/17 06/04/17 06/04/17 06:14 11:49 16:48 WBC MCH RDW Seg Neutrophils % Seg Neuts % (Manual) Lymphocytes % (Manual) Seg Neutrophils # Man Monocytes # (Manual) Chloride Carbon Dioxide Creatinine Glucose POC Glucose 162 H 252 H 170 H 06/04/17 06/05/17 06/05/17 22:08 06:17 11:47 WBC MCH RDW Seg Neutrophils % Seg Neuts % (Manual) Lymphocytes % (Manual) Seg Neutrophils # Man Monocytes # (Manual) Chloride Carbon Dioxide Creatinine Glucose POC Glucose 214 H 167 H 216 H
[2017-06-06] MEDS: DUONEB *Not for PRN Use IH SCH ×3 (03:07→14:59)
[2017-06-06] MEDS: HYDROMET PO PRN (04:13)
[2017-06-06] MEDS: SYNTHROID PO SCH (05:55)
[2017-06-06 09:21] VITALS: BP 160/83
[2017-06-06] MEDS: HCTZ PO SCH (09:33)
[2017-06-06] MEDS: ZESTRIL PO SCH (09:33)
[2017-06-06] MEDS: ZITHROMAX PO SCH (09:34)
[2017-06-06] MEDS: NOVOLOG SUB-Q SCH ×2 (09:34→13:04)
[2017-06-06] MEDS: LOVENOX SUB-Q SCH ×2 (09:35→10:03)
[2017-06-06] MEDS: BROVANA NEBU IH SCH (09:50)
[2017-06-06] MEDS: PULMICORT IH SCH (09:50)
[2017-06-06] MEDS ORDERED: DELTASONE PO SCH (11:00)
--- NOTE | 2017-06-06 12:48 | Progress Note ---
Assessment and Plan 66 y/o female with acute flare of asthma secondary to particulate matter 1. Change to Prednisone 60 daily and taper as follows 60x4, 40x4, 20x4 and then 10x4 then stop. 2. Discharge on Symbicort 160 2 puffs BID, one inhaler, no refills 3. Wean FiO2 as tolerated, no on oxygen at home, sats of 88% and greater are acceptable. Should be walked prior to discharge 4. Continue all other home medications 5. could have been discharged yesterday, not held up secondary to pulm status Thank you for this consult. Subjective Date of service: 06/06/17 Interval history: Weaned to room air. Up eating lunch. Stable. Ready to go home Objective Vital Signs - 12hr 06/06/17 06/06/17 06/06/17 02:10 02:20 09:03 Temperature 98.5 F Pulse Rate 70 Pulse Rate [ 73 79 Anterior Bilateral Throughout] Respiratory 22 Rate Respiratory 20 20 Rate [Anterior Bilateral Throughout] Blood Pressure 160/83 O2 Sat by Pulse 97 Oximetry 06/06/17 06/06/17 06/06/17 09:33 09:49 09:50 Temperature Pulse Rate Pulse Rate [ 63 Anterior Bilateral Throughout] Respiratory Rate Respiratory 18 Rate [Anterior Bilateral Throughout] Blood Pressure 160/83 O2 Sat by Pulse 94 Oximetry 06/06/17 10:06 Temperature Pulse Rate Pulse Rate [ 64 Anterior Bilateral Throughout] Respiratory Rate Respiratory 18 Rate [Anterior Bilateral Throughout] Blood Pressure O2 Sat by Pulse Oximetry Constitutional: no acute distress, alert, other (morbidly obese) Eyes: non-icteric ENT: oropharynx moist Neck: supple Effort: normal Ascultation: Bilateral: diminished breath sounds (no wheezes) Percussion: Bilateral: not dull Tactile fremitus: Bilateral: normal Cardiovascular: regular rate and rhythm Gastrointestinal: normoactive bowel sounds, soft, non-tender Extremities: no edema, pink and warm, pulses normal Neurologic: normal mental status, non-focal exam Psychiatric: mood appropriate CBC and BMP: 06/03/17 07:53 06/03/17 07:53 Abnormal lab findings: Abnormal Labs 06/01/17 06/01/17 06/03/17 21:41 21:41 07:53 WBC 20.2 H MCH 27 L 27 L RDW 15.6 H 15.8 H Seg Neutrophils % 76.6 H Seg Neuts % (Manual) 84.0 H Lymphocytes % (Manual) 8.0 L Seg Neutrophils # Man 17.0 H Monocytes # (Manual) 1.2 H Chloride 94.9 L Carbon Dioxide 31 H Creatinine Glucose 110 H POC Glucose 06/03/17 06/03/17 06/03/17 07:53 15:53 22:15 WBC MCH RDW Seg Neutrophils % Seg Neuts % (Manual) Lymphocytes % (Manual) Seg Neutrophils # Man Monocytes # (Manual) Chloride 96.2 L Carbon Dioxide Creatinine 0.6 L Glucose 193 H POC Glucose 206 H 199 H 06/04/17 06/04/17 06/04/17 06:14 11:49 16:48 WBC MCH RDW Seg Neutrophils % Seg Neuts % (Manual) Lymphocytes % (Manual) Seg Neutrophils # Man Monocytes # (Manual) Chloride Carbon Dioxide Creatinine Glucose POC Glucose 162 H 252 H 170 H 06/04/17 06/05/17 06/05/17 22:08 06:17 11:47 WBC MCH RDW Seg Neutrophils % Seg Neuts % (Manual) Lymphocytes % (Manual) Seg Neutrophils # Man Monocytes # (Manual) Chloride Carbon Dioxide Creatinine Glucose POC Glucose 214 H 167 H 216 H 06/05/17 06/05/17 06/06/17 16:31 21:20 05:37 WBC MCH RDW Seg Neutrophils % Seg Neuts % (Manual) Lymphocytes % (Manual) Seg Neutrophils # Man Monocytes # (Manual) Chloride Carbon Dioxide Creatinine Glucose POC Glucose 199 H 181 H 172 H 06/06/17 12:32 WBC MCH RDW Seg Neutrophils % Seg Neuts % (Manual) Lymphocytes % (Manual) Seg Neutrophils # Man Monocytes # (Manual) Chloride Carbon Dioxide Creatinine Glucose POC Glucose 135 H
--- NOTE | 2017-06-06 13:04 | Discharge Summary ---
Providers - Providers Date of Admission: 06/02/17 01:30 Date of discharge: 06/06/17 Attending physician: DIOGENES ARELLANO MD 06/02/17 12:15 Consult to Physician [CONS] Routine Consulting Provider: MENDY NICHOLE Reason For Exam: ASTHMA EXACERBATION Place consult to:: dr. nichole/ mabel Notified:: office Phone number called:: Was contact made?: Yes If yes, spoke with:: gerson Time called:: 16:41 Primary care physician: SHINGLER Hospitalization Reason for admission: Asthma exercebation Condition: Stable Pertinent studies: CXR that was unremarkable Procedures: none Hospital course: Pt is a 66 year old woman with history of asthma controlled and has been off meds for the past 10 years, hypertension, hypothyroidism comes to the emergency room with complaints of shortness of breath x 9 days. She was seen at [facility] emergency room and was treated with nebulizer treatments and discharged. Her symptoms worsened. Has a dry cough, no fever, chills. Was admitted and commenced on Duoneb, Pulmacort, iv solumedrol and iv antibiotic. Shortness of breath and wheezing improved. Pt was mira off solumendtrol and is been discharged today to f/u with PCP and seed and fertilizer specialist in 5 and 7 days respectively. Disposition: - TO HOME OR SELFCARE Time spent for discharge: 32 mins Core Measure Documentation - Palliative Care Palliative Care/ Comfort Measures: Not Applicable - Core Measures Any of the following diagnoses?: none Exam - Constitutional Vitals: Temp Pulse Resp BP Pulse Ox 98.5 F 64 18 160/83 94 06/06/17 09:03 06/06/17 10:06 06/06/17 10:06 06/06/17 09:33 06/06/17 09:49 General appearance: Present: no acute distress, well-nourished - EENT Eyes: Present: PERRL ENT: hearing intact, clear oral mucosa - Neck Neck: Present: supple, normal ROM - Respiratory Respiratory effort: normal Respiratory: bilateral: CTA - Cardiovascular Heart Sounds: Present: S1 & S2. Absent: rub, click - Extremities Extremities: pulses symmetrical, No edema Peripheral Pulses: within normal limits - Abdominal General gastrointestinal: Present: soft, non-tender, non-distended, normal bowel sounds - Integumentary Integumentary: Present: clear, warm, dry - Musculoskeletal Musculoskeletal: gait normal, strength equal bilaterally - Psychiatric Psychiatric: appropriate mood/affect, intact judgment & insight - Neurologic Neurologic: CNII-XII intact, moves all extremities Plan Activity: advance as tolerated Diet: regular Special Instructions: restrict fluid intake to Follow up with: HOLLIE SARAH MD [Staff Physician] - 7 Days PRIMARY CARE, [Primary Care Provider] - 3 Days Forms: Work/School Release Form Prescriptions: Azithromycin [Zithromax TAB] 500 mg PO QDAY #5 tablet Budesonide [Pulmicort Respules] 0.5 mg IH Q12HRT #60 nebu HYDROcodone/HOMATROP 5-1.5 [HYDROcodone-Homatropin 5-1.5 mg per 5 ML] 5 ml PO Q6H PRN #100 udc PRN Reason: Cough Ipratropium/Albuterol Sulfate [DUONEB *Not for PRN Use*] 1 ampul IH Q6HRT #100 ampul.neb Levothyroxine Sodium [Synthroid] 75 mcg PO QDAY #30 tablet Lisinopril/Hydrochlorothiazide [Zestoretic 20-12.5 mg] 1 tab PO QDAY #30 tablet predniSONE [Deltasone] 20 mg PO QDAY #90 tablet ProAir HFA Inhaler 2 puff IH Q4-6H PRN #2 PRN Reason: Shortness Of Breath
== END 2017-06-06 17:45 | disposition home or self-care (01) | DRG 189 ==
LOC: ED 19:58 → 3A 06-02 01:30
PROVIDERS: ADMIT Internal Medicine; ATTEND Internal Medicine
DX: J96.00 Acute respiratory failure, unspecified whether with hypoxia or hypercapnia (principal); J45.901 Unspecified asthma with (acute) exacerbation; Z68.44 Body mass index [BMI] 60.0-69.9, adult; I10 Essential (primary) hypertension; E66.01 Morbid (severe) obesity due to excess calories; E03.9 Hypothyroidism, unspecified; E88.81 Metabolic syndrome and other insulin resistance; J20.9 Acute bronchitis, unspecified; R73.9 Hyperglycemia, unspecified; Z87.891 Personal history of nicotine dependence; Z90.5 Acquired absence of kidney; Z82.49 Family history of ischemic heart disease and other diseases of the circulatory system; Z79.899 Other long term (current) drug therapy
CPT/HCPCS: 36415; 71010; 80048; 82962; 84484; 85007; 85025; 87040; 87116; 87400; 87430; 93005; 93010; 94640; 94760; 96365; 96366; 96368; 96375; J0456; J1650; J1815; J2930; J3475; J7050; J7512

== ENCOUNTER 2019-07-25 04:21 | Emergency (ER) | payer BC, MEDICARE ==
[2019-07-25 04:27] VITALS: BP 165/91
[2019-07-25] MEDS ORDERED: diphenhydrAMINE 50 MG/ML VIAL ONE (04:42)
[2019-07-25] MEDS ORDERED: IPRATROPIUM/ALBUTEROL SULFATE 3 ML AMPUL.NEB IH ONE ×2 (04:43)
[2019-07-25] MEDS ORDERED: EPINEPHrine/PF (1:1,000) 1 MG/1 ML INJ SUB-Q ONE (04:44)
[2019-07-25] MEDS ORDERED: diphenhydrAMINE 50 MG/ML VIAL IV ONE (04:54)
--- NOTE | 2019-07-25 05:30 | XRay Report ---
CHEST 2 VIEWS INDICATION / CLINICAL INFORMATION: SOB, LAUREN. COMPARISON: 08/10/2017 FINDINGS: SUPPORT DEVICES: None. HEART / MEDIASTINUM: No significant abnormality. LUNGS / PLEURA: No significant pulmonary or pleural abnormality. .No pneumothorax. ADDITIONAL FINDINGS: No significant additional findings. IMPRESSION: 1. No acute findings. Signer Name: Sid Todd MD Signed: 07/25/2019 5:26 AM Workstation Name: [id number]
[2019-07-25] MEDS ORDERED: predniSONE 20 MG TAB ONE (06:05)
[2019-07-25] MEDS ORDERED: predniSONE 20 MG TAB PO ONE (06:05)
--- NOTE | 2019-07-25 06:07 | Emergency Department Report ---
ED Shortness of Breath HPI - General Chief Complaint: Dyspnea/Respdistress Stated Complaint: LAUREN Time Seen by Provider: 07/25/19 05:50 Source: patient Mode of arrival: Ambulatory Limitations: No Limitations - History of Present Illness MD Complaint: shortness of breath, cough -: days(s) (10) Severity: mild Quality: dull, aching Consistency: constant Improves With: nothing Worsens With: nothing Associated Symptoms: cough, sputum production - Related Data Previous Rx's Medication Instructions Recorded Last Taken Type Budesonide [Pulmicort Respules] 0.5 mg IH Q12HRT #60 nebu 06/06/17 Unknown Rx HYDROcodone/HOMATROP 5-1.5 5 ml PO Q6H PRN #100 udc 06/06/17 Unknown Rx [HYDROcodone-Homatropin 5-1.5 mg per 5 ML] Lisinopril/Hydrochlorothiazide 1 tab PO QDAY #30 tablet 06/06/17 Unknown Rx [Zestoretic 20-12.5 mg] Nebulizer and Compressor [[place] 1 each MC QID #1 each 06/06/17 Unknown Rx Choice Nebulizer] ProAir HFA Inhaler 2 puff IH Q4-6H PRN #2 06/06/17 Unknown Rx Neomycin/Bacitracin/Polymyxinb 14 gm TP BID #1 oint...g. 08/12/17 Unknown Rx [Triple Antibiotic Ointment] hydrALAZINE [Apresoline TAB] 50 mg PO Q8HR #90 tablet 08/12/17 Unknown Rx predniSONE [Deltasone] 10 mg PO .TAPER #39 tab 08/12/17 Unknown Rx Amoxicillin 500 mg PO TID 10 Days #30 capsule 09/13/18 Unknown Rx Amoxicillin 500 mg PO TID 10 Days #30 capsule 09/13/18 Unknown Rx Albuterol INH(or & Nicu Only) 1 puff IH Q4-6H PRN #1 inha 07/25/19 Unknown Rx [ProAir HFA Inhaler] Montelukast [Singulair] 10 mg PO QPM #14 tablet 07/25/19 Unknown Rx guaiFENesin/CODEINE [Robitussin AC] 5 ml PO Q6H PRN #120 ml 07/25/19 Unknown Rx Allergies Allergy/AdvReac Type Severity Reaction Status Date / Time budesonide [From Symbicort] Allergy Shortness Verified 07/25/19 04:25 of Breath formoterol [From Symbicort] Allergy Shortness Verified 07/25/19 04:25 of Breath ED Review of Systems ROS: Stated complaint: LAUREN Other details as noted in HPI Comment: All other systems reviewed and negative ED Past Medical Hx - Past Medical History Previous Medical History?: Yes Hx Hypertension: Yes Hx Asthma: Yes Additional medical history: hypothyroidism - Surgical History Past Surgical History?: Yes Additional Surgical History: dc. tubal ligation - Social History Smoking Status: Never Smoker Substance Use Type: None - Medications Home Medications: Home Medications Medication Instructions Recorded Confirmed Last Taken Type Budesonide [Pulmicort Respules] 0.5 mg IH Q12HRT #60 nebu 06/06/17 08/11/17 Unknown Rx HYDROcodone/HOMATROP 5-1.5 5 ml PO Q6H PRN #100 udc 06/06/17 08/11/17 Unknown Rx [HYDROcodone-Homatropin 5-1.5 mg per 5 ML] Lisinopril/Hydrochlorothiazide 1 tab PO QDAY #30 tablet 06/06/17 08/11/17 Unknown Rx [Zestoretic 20-12.5 mg] Nebulizer and Compressor [[place] 1 each MC QID #1 each 06/06/17 08/11/17 Unknown Rx Choice Nebulizer] ProAir HFA Inhaler 2 puff IH Q4-6H PRN #2 06/06/17 08/11/17 Unknown Rx Neomycin/Bacitracin/Polymyxinb 14 gm TP BID #1 oint...g. 08/12/17 Unknown Rx [Triple Antibiotic Ointment] hydrALAZINE [Apresoline TAB] 50 mg PO Q8HR #90 tablet 08/12/17 Unknown Rx predniSONE [Deltasone] 10 mg PO .TAPER #39 tab 08/12/17 Unknown Rx Amoxicillin 500 mg PO TID 10 Days #30 capsule 09/13/18 Unknown Rx Amoxicillin 500 mg PO TID 10 Days #30 capsule 09/13/18 Unknown Rx Albuterol INH(or & Nicu Only) 1 puff IH Q4-6H PRN #1 inha 07/25/19 Unknown Rx [ProAir HFA Inhaler] Montelukast [Singulair] 10 mg PO QPM #14 tablet 07/25/19 Unknown Rx guaiFENesin/CODEINE [Robitussin AC] 5 ml PO Q6H PRN #120 ml 07/25/19 Unknown Rx ED Physical Exam - General Limitations: No Limitations General appearance: alert, obese (morbidly obese), other (mild distress but nontoxic) - Head Head exam: Present: atraumatic, normocephalic - Eye Eye exam: Present: normal appearance, PERRL, EOMI - ENT ENT exam: Present: mucous membranes moist - Neck Neck exam: Present: normal inspection - Respiratory Respiratory exam: Present: normal lung sounds bilaterally, wheezes, rhonchi (to the left foramen), other (normal vitals and pulse oximetry with ambulation). Absent: respiratory distress - Cardiovascular Cardiovascular Exam: Present: regular rate, normal rhythm. Absent: systolic murmur, diastolic murmur, rubs, gallop - GI/Abdominal GI/Abdominal exam: Present: soft, normal bowel sounds - Extremities Exam Extremities exam: Present: normal inspection - Back Exam Back exam: Present: normal inspection - Neurological Exam Neurological exam: Present: alert, oriented X3 - Psychiatric Psychiatric exam: Present: normal affect, normal mood - Skin Skin exam: Present: warm, dry, intact, normal color. Absent: rash ED Course Vital Signs 07/25/19 04:26 Temperature 98.8 F Pulse Rate 70 Respiratory 20 Rate Blood Pressure 165/91 [Right] O2 Sat by Pulse 96 Oximetry ED Medical Decision Making - Radiology Data Radiology results: report reviewed [facility] [address] [place] [address] XRay Report Signed Patient: RICO HEIN MR#: [id number] : 1950 Acct:[id number] Age/Sex: 69 / F ADM Date: 07/25/19 Loc: ED Attending Dr: Ordering Physician: COOKIE ASHTON MD Date of Service: 07/25/19 Procedure(s): XR chest routine 2V Accession Number(s): [id number] cc: ED MD POLI Fluoro Time In Minutes: CHEST 2 VIEWS INDICATION / CLINICAL INFORMATION: SOB, LAUREN. COMPARISON: 08/10/2017 FINDINGS: SUPPORT DEVICES: None. HEART / MEDIASTINUM: No significant abnormality. LUNGS / PLEURA: No significant pulmonary or pleural abnormality. .No pneumothorax. ADDITIONAL FINDINGS: No significant additional findings. IMPRESSION: 1. No acute findings. Signer Name: Sid Todd MD Signed: 07/25/2019 5:26 AM Workstation Name: [id number] Transcribed By: SS Dictated By: Sid Todd MD Electronically Authenticated By: Sid Todd MD Signed Date/Time: 07/25/19525 DD/ 4 TD/TT: - Medical Decision Making This patient presents with acute cough, most consistent with respiratory isue. Differential diagnosis includes adthma, bronchitis, deconditioning. Presentation not consistent with acute bacterial pneumonia, influenza, asthma, transient airway hyperresponsiveness. Presentation not consistent with chronic causes of cough (including GERD, asthma, postnasal discharge, medication side effect, CHF, lung cancer or mass). Plan: negative CXR, supportive care, reassess Critical care attestation.: If time is entered above; I have spent that time in minutes in the direct care of this critically ill patient, excluding procedure time. ED Disposition Clinical Impression: Reactive airway disease, Acute bronchitis Disposition: DC-01 TO HOME OR SELFCARE Is pt being admited?: No Does the pt Need Aspirin: No Condition: Stable Instructions: Acute Bronchitis (ED), Cold Symptoms (ED), Acute Cough (ED), Dyspnea (ED) Referrals: LASHAUN HERNANDEZ MD [Staff Physician] - 3-5 Days
== END 2019-07-25 07:05 | disposition home or self-care (01) ==
LOC: ED 04:21
DX: J45.909 Unspecified asthma, uncomplicated (principal); I10 Essential (primary) hypertension; E03.9 Hypothyroidism, unspecified; Z79.899 Other long term (current) drug therapy; Z98.51 Tubal ligation status; Z88.8 Allergy status to other drugs, medicaments and biological substances
CPT/HCPCS: 71046; 94640; 96374; 99283; J0171; J1200; J7512